=== PATIENT | female | born 1995 | race Caucasian/White ===

== ENCOUNTER 2019-07-15 20:33 | Emergency (ER) | payer SELFPAY ==
[2019-07-15 21:51] LABS: BILIRUBIN,URINE SMALL (NEG); CLARITY,URINE CLOUDY; COLOR,URINE AMBER; NITRITE,URINE NEGATIVE (NEG); PH,URINE 6.5; PROTEIN,URINE 30 mg/dL (NEG-TRACE)
[2019-07-15] MEDS: IV NORMAL SALINE 1000ML BAG 1,000 ML IV ONE ×2 (21:55→23:52)
[2019-07-15] MEDS: ONDANSETRON PF 4 MG/2 ML VIAL. IV ONE (21:55)
[2019-07-15 21:57] LABS: BACTERIA,URINE FEW /HPF (0-FEW); RBC,URINE 0 /HPF (0-2); SQUAMOUS EPITHELIAL CELL,UR MOD /LPF; WBC,URINE TNTC /HPF (0-4)
[2019-07-15 21:59] LABS: U PREG PATIENT NEGATIVE (NEG)
--- NOTE | 2019-07-15 21:59 | PHYS DOC ---
Past Medical History Alcohol Use: Rarely Adult General Chief Complaint Chief Complaint: ABDOMINAL PAIN HPI HPI 24-year-old female presents to the emergency Department complaints of abdominal pain, back pain which started around 4 PM yesterday. Patient states she's had nausea, vomiting, diarrhea worsening today. Denies any dysuria however does have pressure with urination. She's been afebrile. Patient states she's been unable to keep anything down. She describes right flank pain with CVA tenderness on exam nothing makes her pain worse, nothing makes her pain better. Review of Systems Review of Systems Constitutional: Denies fever or chills [] Respiratory: Denies cough or shortness of breath [] Cardiovascular: No additional information not addressed in HPI [] GI: + abdominal pain, nausea, vomiting, no bloody stools or diarrhea [] : Denies dysuria or hematuria [] Musculoskeletal: right CVA tenderness Integument: Denies rash or skin lesions [] Neurologic: Denies headache, focal weakness or sensory changes [] All other systems were reviewed and found to be within normal limits, except as documented in this note. Current Medications Current Medications Current Medications Medications (Trade) Dose Ordered Sig/Veronica Start Time Stop Time Status Last Admin Dose Admin Ceftriaxone Sodium (Rocephin) 1 gm 1X ONCE 07/15/19 23:45 07/15/19 23:46 DC 07/15/19 23:52 1 GM Dicyclomine HCl (Bentyl) 10 mg 1X ONCE 07/15/19 23:45 07/15/19 23:46 DC 07/15/19 23:51 10 MG Iohexol (Omnipaque 300 Mg/ml) 75 ml 1X ONCE 07/15/19 22:45 07/15/19 22:46 DC 07/15/19 22:46 75 ML Ketorolac Tromethamine (Toradol 30mg Vial) 30 mg 1X ONCE 07/15/19 23:15 07/15/19 23:19 DC 07/15/19 23:14 30 MG Morphine Sulfate (Morphine Sulfate) 4 mg 1X ONCE 07/15/19 22:15 07/15/19 22:16 DC 07/15/19 22:26 4 MG Ondansetron HCl (Zofran) 4 mg 1X ONCE 07/15/19 22:00 07/15/19 22:01 DC 07/15/19 21:55 4 MG Sodium Chloride 1,000 ml @ 1,000 mls/hr 1X ONCE 07/16/19 00:00 07/16/19 00:59 07/15/19 23:52 1,000 MLS/HR Allergies Allergies Allergies Coded Allergies Type Severity Reaction Last Updated Verified Penicillins Allergy Unknown rash 07/15/19 Yes latex Allergy Unknown 07/15/19 Yes Physical Exam Physical Exam Constitutional: Well developed, well nourished, distress 2/2 pain, non-toxic appearance. [] HENT: Normocephalic, atraumatic, bilateral external ears normal, oropharynx moist, no oral exudates, nose normal. [] Eyes: PERRLA, EOMI, conjunctiva normal, no discharge. [] Cardiovascular: Tachycardia, no murmur [] Lungs & Thorax: Bilateral breath sounds clear to auscultation [] Abdomen: Bowel sounds normal, soft, TTP umbilicus, right lower quadrant, no masses, no pulsatile masses. [] Skin: Warm, dry, no erythema, no rash. [] Back: No tenderness, right CVA tenderness. [] Extremities: No tenderness, no edema. [] Neurologic: Alert and oriented X 3, no focal deficits noted. [] Psychologic: Affect normal, judgement normal, mood normal. [] Current Patient Data Vital Signs Vital Signs Date Time Temp Pulse Resp B/P (MAP) Pulse Ox O2 Delivery O2 Flow Rate FiO2 07/15/19 22:35 104 134/79 (97) 98 Room Air 07/15/19 20:50 98.2 17 98.2 Lab Values Laboratory Tests Test 07/15/19 20:40 07/15/19 21:05 Urine Collection Type Unknown Urine Color Kristen Urine Clarity Cloudy Urine pH 6.5 Urine Specific [place] >=1.030 Urine Protein 30 mg/dL (NEG-TRACE) Urine Glucose (UA) Negative mg/dL (NEG) Urine Ketones (Stick) >=80 mg/dL (NEG) Urine Blood Negative (NEG) Urine Nitrite Negative (NEG) Urine Bilirubin Small (NEG) Urine Urobilinogen Dipstick 1.0 mg/dL (0.2 mg/dL) Urine Leukocyte Esterase Large (NEG) Urine RBC 0 /HPF (0-2) Urine WBC Tntc /HPF (0-4) Urine Squamous Epithelial Cells Mod /LPF Urine Bacteria Few /HPF (0-FEW) Urine Mucus Mod /LPF Urine Test Negative (NEG) White Blood Count 6.6 x10^3/uL (4.0-11.0) Red Blood Count 5.11 x10^6/uL (3.50-5.40) Hemoglobin 15.6 g/dL (12.0-15.5) H Hematocrit 46.3 % (36.0-47.0) Mean Corpuscular Volume 91 fL (79-100) Mean Corpuscular Hemoglobin 31 pg (25-35) Mean Corpuscular Hemoglobin Concent 34 g/dL (31-37) Red Cell Distribution Width 14.1 % (11.5-14.5) Platelet Count 201 x10^3/uL (140-400) Neutrophils (%) (Auto) 76 % (31-73) H Lymphocytes (%) (Auto) 15 % (24-48) L Monocytes (%) (Auto) 9 % (0-9) Eosinophils (%) (Auto) 0 % (0-3) Basophils (%) (Auto) 1 % (0-3) Neutrophils # (Auto) 5.0 x10^3/uL (1.8-7.7) Lymphocytes # (Auto) 1.0 x10^3/uL (1.0-4.8) Monocytes # (Auto) 0.6 x10^3/uL (0.0-1.1) Eosinophils # (Auto) 0.0 x10^3/uL (0.0-0.7) Basophils # (Auto) 0.0 x10^3/uL (0.0-0.2) Sodium Level 141 mmol/L (136-145) Potassium Level 3.4 mmol/L (3.5-5.1) L Chloride Level 104 mmol/L (98-107) Carbon Dioxide Level 24 mmol/L (21-32) Anion Gap 13 (6-14) Blood Urea Nitrogen 15 mg/dL (7-20) Creatinine 0.9 mg/dL (0.6-1.0) Estimated GFR (Cockcroft-Gault) 78.3 BUN/Creatinine Ratio 17 (6-20) Glucose Level 82 mg/dL (70-99) Calcium Level 9.1 mg/dL (8.5-10.1) Total Bilirubin 0.4 mg/dL (0.2-1.0) Aspartate Amino Transferase (AST) 22 U/L (15-37) Alanine Aminotransferase (ALT) 39 U/L (14-59) Alkaline Phosphatase 80 U/L (46-116) Total Protein 7.5 g/dL (6.4-8.2) Albumin 4.0 g/dL (3.4-5.0) Albumin/Globulin Ratio 1.1 (1.0-1.7) Lipase 59 U/L (73-393) L Laboratory Tests 07/15/19 21:05 Laboratory Tests 07/15/19 21:05 EKG EKG [] Radiology/Procedures Radiology/Procedures [facility] [address] [place], [place] [id number] IMAGING REPORT Signed PATIENT: ARACELI VILLAFANA RACCOUNT: [id number] : 1995 LOCATION: ER AGE: 24 SEX: F EXAM STATUS: REG ER ORD. PHYSICIAN: BAILEY COFFEY MD REASON: right lower quadrant pain, right CVA tenderness PROCEDURE: CT ABD PELV W/ IV CONTRST ONLY CT abdomen pelvis with contrast. HISTORY: Right lower quadrant pain CT scan the abdomen pelvis was done using 75 mL Omnipaque 300 contrast. Lung bases are clear. There is no effusion. A focal liver lesion is not identified. The intrahepatic bile ducts are mildly prominent. The patient's had a cholecystectomy. Spleen and adrenal glands are normal. Pancreas is normal. There is no mass or hydronephrosis in the kidneys. There is no bowel obstruction or ascites. Appendix is normal pelvis on the right. Uterus and ovaries are unremarkable. There is a trace of fluid in the pelvis which is nonspecific. A ureteral calculus is not identified. There are phleboliths in the pelvis mainly on the left. IMPRESSION: 1. Previous cholecystectomy. 2. Bile ducts are mildly prominent which is nonspecific. 3. No renal or ureteral calculus. 4. Normal appendix. PQRS Compliance Statement: One or more of the following individualized dose reduction techniques were utilized for this examination: 1. Automated exposure control 2. Adjustment of the mA and/or kV according to patient size 3. Use of iterative reconstruction technique Electronically signed by: Juma Bassett MD (07/15/2019 10:59 PM) [facility] DICTATED and SIGNED BY: JUMA BASSETT MD DATE: 07/15/19 9649 [] Course & Med Decision Making Course & Med Decision Making Pertinent Labs and Imaging studies reviewed. (See chart for details) []24-year-old female presents to the emergency Department complaints of abdominal pain, back pain which started around 4 PM yesterday. Patient states she's had nausea, vomiting, diarrhea worsening today. Denies any dysuria however does have pressure with urination. She's been afebrile. Patient states she's been unable to keep anything down. She describes right flank pain with CVA tenderness on exam nothing makes her pain worse, nothing makes her pain better. Labs/Imaging reveiwed IVF provided in ER x 2 liters Discussed lab findings of UTI - Rocephin IVP x 1 Patient has received morphine, toradol, zofran, bentyl without relief of pain CT shows no evidence of acute intra-abdominal process US reviewed - no evidence of torsion Bentyl improved pain a Dragon Disclaimer Dragon Disclaimer This electronic medical record was generated, in whole or in part, using a voice recognition dictation system. Departure Departure Impression: Primary Impression: Abdominal pain Additional Impressions: UTI (urinary tract infection) Viral enteritis Disposition: HOME, SELF-CARE Condition: IMPROVED Referrals: UNKNOWN PCP NAME (PCP) Patient Instructions: Abdominal Pain (Nonspecific), Urinary Tract Infection Additional Instructions: Recommend follow up with PCP 3 - 5 days Return to the ER with worsening symptoms, intractable pain, fever, altered ment al status Tylenol/Motrin as needed for pain Take antibiotics as scheduled Take zofran/bentyl as needed Scripts Dicyclomine Hcl (DICYCLOMINE HCL) 10 Mg Capsule 10 MG PO QID for 3 Days, #12 CAP Prov: BAILEY COFFEY MD 07/16/19 Cephalexin (KEFLEX) 500 Mg Capsule 2 CAP PO Q12HR for 5 Days, #20 CAP Prov: BAILEY COFFEY MD 07/16/19 Ondansetron Hcl (ZOFRAN) 4 Mg Tablet 1 TAB PO PRN Q6-8HRS for nausea, #12 TAB Prov: BAILEY COFFEY MD 07/16/19 Problem Qualifiers Primary Impression: Abdominal pain Abdominal location: lower abdomen, unspecified Qualified Codes: R10.30 - Lower abdominal pain, unspecified Additional Impressions: UTI (urinary tract infection) Urinary tract infection type: site unspecified Hematuria presence: without hematuria Qualified Codes: N39.0 - Urinary tract infection, site not specified BAILEY COFFEY MD Jul 15, 2019 21:59
[2019-07-15 22:18] LABS: BASO % 1 % (0-3); EOS % 0 % (0-3); HEMATOCRIT 46.3 % (36.0-47.0); HEMOGLOBIN 15.6 g/dL (12.0-15.5); LYMPH % 15 % (24-48); MEAN CORPUSCULAR HEMOGLOBIN 31 pg (25-35); MEAN CORPUSCULAR HGB CONC 34 g/dL (31-37); MEAN CORPUSCULAR VOLUME 91 fL (79-100); MONO # 0.6 x10^3/uL (0.0-1.1); MONO % 9 % (0-9); NEUT % 76 % (31-73); PLATELET COUNT 201 x10^3/uL (140-400); RED BLOOD COUNT 5.11 x10^6/uL (3.50-5.40); RED CELL DISTRIBUTION WIDTH 14.1 % (11.5-14.5); WHITE BLOOD COUNT 6.6 x10^3/uL (4.0-11.0)
[2019-07-15] MEDS: MORPHINE SULFATE 4 MG/ML VIAL. IV ONE (22:26)
[2019-07-15 22:36] LABS: CALCIUM 9.1 mg/dL (8.5-10.1); CREATININE 0.9 mg/dL (0.6-1.0); GFR 78.3; POTASSIUM 3.4 mmol/L (3.5-5.1)
[2019-07-15 22:42] LABS: ALBUMIN/GLOBULIN RATIO 1.1 (1.0-1.7); TOTAL BILIRUBIN 0.4 mg/dL (0.2-1.0); TOTAL PROTEIN 7.5 g/dL (6.4-8.2)
[2019-07-15] MEDS: IOHEXOL 300 MG/ML 100ML VIAL. IV ONE (22:46)
--- NOTE | 2019-07-15 23:02 | RAD ---
CT abdomen pelvis with contrast. HISTORY: Right lower quadrant pain CT scan the abdomen pelvis was done using 75 mL Omnipaque 300 contrast. Lung bases are clear. There is no effusion. A focal liver lesion is not identified. The intrahepatic bile ducts are mildly prominent. The patient's had a cholecystectomy. Spleen and adrenal glands are normal. Pancreas is normal. There is no mass or hydronephrosis in the kidneys. There is no bowel obstruction or ascites. Appendix is normal pelvis on the right. Uterus and ovaries are unremarkable. There is a trace of fluid in the pelvis which is nonspecific. A ureteral calculus is not identified. There are phleboliths in the pelvis mainly on the left. IMPRESSION: 1. Previous cholecystectomy. 2. Bile ducts are mildly prominent which is nonspecific. 3. No renal or ureteral calculus. 4. Normal appendix. PQRS Compliance Statement: One or more of the following individualized dose reduction techniques were utilized for this examination: 1. Automated exposure control 2. Adjustment of the mA and/or kV according to patient size 3. Use of iterative reconstruction technique Electronically signed by: Juma Lazcano MD (07/15/2019 10:59 PM) [facility]
[2019-07-15] MEDS: KETOROLAC 30 MG/ML VIAL. IV ONE (23:14)
[2019-07-15] MEDS: DICYCLOMINE 20 MG/2 ML AMPUL. IM ONE (23:51)
[2019-07-15] MEDS: cefTRIAXone IV Push 1 GM VIAL. IVP ONE (23:52)
--- NOTE | 2019-07-16 00:31 | RAD ---
Complete pelvic ultrasound HISTORY: Abdominal pain, right lower quadrant pain. TECHNIQUE: Transabdominal transvaginal transducers were utilized. FINDINGS: Transabdominal imaging of trace anteverted uterus measuring 7.6 x 3.2 x 4.4 cm. Limited visualization of the endometrium and lower uterus due to shadowing from bowel loops. Mild distention of the urinary bladder. Limited visualization of the ovaries due to bowel gas shadowing. Transvaginal imaging demonstrates anteverted uterus measuring 7.5 x 2.0 x 4.5 cm. Small cervical cyst at the endocervix. No uterine mass. Endometrium thickness 0.2 cm. Right ovary measures 2.6 x 1.4 x 1.7 cm. Left ovary measures 1.8 x 0.9 x 1.7 cm. A few subcentimeter bilateral ovarian follicles are present. There is intact bilateral ovarian blood flow. Small volume of simple fluid at cul-de-sac, a normal finding in a premenopausal female, likely related to recent ovulation. IMPRESSION: Normal exam. Electronically signed by: Elpidio Covarrubias MD (07/16/2019 12:29 AM) [id number]
[2019-07-16] MEDS ORDERED: CEPH-264 PO (00:34)
[2019-07-16] MEDS ORDERED: DICY10CA3 PO (00:34)
[2019-07-16] MEDS ORDERED: ONDA4TAB7 PO (00:34)
[2019-07-16 01:35] VITALS: BP 117/68
== END 2019-07-16 01:55 | disposition home or self-care (01) ==
LOC: ER 20:33
DX: N39.0 Urinary tract infection, site not specified (principal); R10.31 Right lower quadrant pain; R11.2 Nausea with vomiting, unspecified; A08.39 Other viral enteritis; Z88.0 Allergy status to penicillin; Z91.040 Latex allergy status; Z79.899 Other long term (current) drug therapy
CPT/HCPCS: 36415; 74177; 76830; 76856; 80053; 81001; 81025; 83690; 85025; 87086; 96361; 96372; 96374; 96375; 99285; J0500; J0696; J1885; J2270; J2405; J7030; Q9967